=== PATIENT | female | born 1945 | race Caucasian/White ===

== ENCOUNTER 2017-12-19 09:12 | Observation (INO) | payer MEDICARE ==
[~2017-12-19] VITALS: Ht 160 cm; Wt 84.3 kg
[2017-12-19] VITALS (8 sets, daily range): BP systolic 123–141; BP diastolic 58–70; PULSE 68–96; RESP 16–20; TEMP 96.8–98; O2SAT 90–95
[~2017-12-19 09:12] MED LIST: ALBU8I INH; ASPI81TA82 PO; NAPR-576 PO; ULTR50TA PO; ZOCO40TA PO; ZYRT10TA12 PO
[2017-12-19] MEDS ORDERED: SODIUM CHLORIDE 0.9% FLUSH 10 ML FLUSH IVF PRN (09:45)
--- NOTE | 2017-12-19 09:50 | PD ---
HPI Chief Complaint: Abdominal Pain Time Seen by Provider: 09:30 Travel History International Travel<30 days: No Contact w/Intl Traveler<30days: No Traveled to known affect area: No History of Present Illness HPI The patient 72 and complains of a vague cramping discomfort along the costal margin bilaterally which occurred while she was at a stained glass class lasting just a few minutes. 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 No syncope or near -syncope lightheadedness dizziness nausea vomiting or diaphoresis accompanied the spell. The patient has been short of breath lately and has been fighting some benefit by the use of Zyrtec and her inhaler at night. The significant other notes dyspnea on exertion. There is no orthopnea. No history of diabetes hypertension or coronary artery disease. Patient does not smoke. PFSH Past Medical History Hx Anticoagulant Therapy: Yes (ASA 81MG DAILY) Cardiovascular Problems: Yes (CHOL, HTN) Cerebrovascular Accident: Yes (2008) ?: Not Past Surgical History Hysterectomy: Yes Other Surgery: Yes Social History Alcohol Use: Yes (rare) Tobacco Use: No Substance Use: No Allergies-Medications (Allergen,Severity, Reaction): Coded Allergies: latex (Unverified Allergy, Severe, RASH, 12/19/17) adhesive (Unverified Allergy, Intermediate, RASH, 12/19/17) Uncoded Allergies: TOPICAL ANTIBIOTICS (Allergy, Intermediate, RASH AND HIVES, 10/20/15) Reported Meds & Prescriptions Reported Meds & Active Scripts Active Reported Calcium 600 with Vitamin D (Calcium Carbonate-Cholecalciferol) 600-400 mg-Unit Tab 1,200 Tab PO DAILY Cetirizine (Cetirizine HCl) 10 Mg Chew 10 Mg CHEW DAILY Vitamin D3 (Cholecalciferol) 2,000 Unit Cap 2,000 Units PO DAILY Aspirin Low Dose (Aspirin) 81 Mg Chew 81 Mg CHEW DAILY Meloxicam 15 Mg Tab 15 Mg PO DAILY Simvastatin 20 Mg Tab 20 Mg PO DAILY Review of Systems Except as stated in HPI: all other systems reviewed are Neg General / Constitutional: No: Fever Physical Exam Narrative GENERAL: 9-year-old female pleasant well-nourished well-developed no acute distress Vital Signs Date Time Temp Pulse Resp B/P (MAP) Pulse Ox O2 Delivery O2 Flow Rate FiO2 12/19/17 09:39 20 12/19/17 09:20 98.0 96 16 141/68 (92) 92 SKIN: Warm and dry. HEAD: Atraumatic. Normocephalic. EYES: Pupils equal and round. No scleral icterus. No injection or drainage. ENT: No nasal bleeding or discharge. Mucous membranes pink and moist. NECK: Trachea midline. No JVD. CARDIOVASCULAR: Regular rate and rhythm. RESPIRATORY: No accessory muscle use. Clear to auscultation. Breath sounds equal bilaterally. GASTROINTESTINAL: Abdomen soft, non-tender, nondistended. Hepatic and splenic margins not palpable. MUSCULOSKELETAL: Extremities without clubbing, cyanosis, or edema. No obvious deformities. NEUROLOGICAL: Awake and alert. No obvious cranial nerve deficits. Motor grossly within normal limits. Five out of 5 muscle strength in the arms and legs. Normal speech. PSYCHIATRIC: Appropriate mood and affect; insight and judgment normal. Data Data Last Documented VS Vital Signs Date Time Temp Pulse Resp B/P (MAP) Pulse Ox O2 Delivery O2 Flow Rate FiO2 12/19/17 10:15 93 Nasal Cannula 2.00 12/19/17 09:39 20 12/19/17 09:20 98.0 96 141/68 (92) Orders Orders Electrocardiogram (12/19/17 09:35) B-Type Natriuretic Peptide (12/19/17 09:35) Ckmb (Isoenzyme) Profile (12/19/17 09:35) Complete Blood Count With Diff (12/19/17 09:35) Comprehensive Metabolic Panel (12/19/17 09:35) Magnesium (Mg) (12/19/17 09:35) Prothrombin Time / Inr (Pt) (12/19/17 09:35) Act Partial Throm Time (Ptt) (12/19/17 09:35) Troponin I (12/19/17 09:35) Lipase (12/19/17 09:35) Chest, Single Ap (12/19/17 09:35) Ecg Monitoring (12/19/17 09:35) Iv Access Insert/Monitor (12/19/17 09:35) Oximetry (12/19/17 09:35) Oxygen Administration (12/19/17 09:35) Sodium Chloride 0.9% Flush (Ns Flush) (12/19/17 09:45) CKMB (12/19/17 09:59) CKMB% (12/19/17 09:59) Place In Observation (12/19/17:25) Activity Bed Rest With Brp (12/19/17 11:25) Vital Signs (Adult) Q4H (12/19/17 11:25) Cardiac Rhythm .As Directed (12/19/17:) Notify Dr: Other .PRN (12/19/17) Notify Parameters (12/19/17:25) Resp Oxygen Nasal Cannula (12/19/17 ) Ckmb (Isoenzyme) Profile (12/19/17:25) Ckmb (Isoenzyme) Profile (12/19/17:25) Troponin I (12/19/17:25) Troponin I (12/19/17:25) Electrocardiogram (12/19/17:25) Electrocardiogram (12/19/17:25) ^ Obtain (12/19/17:25) Sodium Chloride 0.9% Flush (Ns Flush) (12/19/17 11:30) Sodium Chloride 0.9% Flush (Ns Flush) (12/19/17 21:00) Acetaminophen (Tylenol) (12/19/17 11:30) Ondansetron Inj (Zofran Inj) (12/19/17 11:30) Famotidine (Pepcid) (12/19/17 21:00) Aspirin (Aspirin) (12/20/17 09:00) Route Driver [employer] Machines / Telemetry KYLE.Q8H (12/19/17 11:25) Admit Order (Ed Use Only) (12/19/17 ) Route Driver [employer] Machines / Telemetry KYLE.Q8H (12/19/17 11:27) Vital Signs (Adult) Q4H (12/19/17 11:27) Activity Oob With Assistance (12/19/17 11:27) Labs Laboratory Tests Test 12/19/17 09:59 White Blood Count 3.8 TH/MM3 Red Blood Count 4.81 MIL/MM3 Hemoglobin 14.7 GM/DL Hematocrit 44.4 % Mean Corpuscular Volume 92.2 FL Mean Corpuscular Hemoglobin 30.6 PG Mean Corpuscular Hemoglobin Concent 33.1 % Red Cell Distribution Width 13.0 % Platelet Count 192 TH/MM3 Mean Platelet Volume 8.0 FL Neutrophils (%) (Auto) 53.3 % Lymphocytes (%) (Auto) 28.2 % Monocytes (%) (Auto) 9.2 % Eosinophils (%) (Auto) 8.1 % Basophils (%) (Auto) 1.2 % Neutrophils # (Auto) 2.1 TH/MM3 Lymphocytes # (Auto) 1.1 TH/MM3 Monocytes # (Auto) 0.3 TH/MM3 Eosinophils # (Auto) 0.3 TH/MM3 Basophils # (Auto) 0.0 TH/MM3 CBC Comment DIFF FINAL Differential Comment Prothrombin Time 10.0 SEC Prothromb Time International Ratio 1.0 RATIO Activated Partial Thromboplast Time 27.5 SEC Blood Urea Nitrogen 13 MG/DL Creatinine 0.73 MG/DL Random Glucose 86 MG/DL Total Protein 7.3 GM/DL Albumin 3.5 GM/DL Calcium Level 8.7 MG/DL Magnesium Level 2.1 MG/DL Alkaline Phosphatase 103 U/L Aspartate Amino Transf (AST/SGOT) 20 U/L Alanine Aminotransferase (ALT/SGPT) 15 U/L Total Bilirubin 0.6 MG/DL Sodium Level 134 MEQ/L Potassium Level 4.3 MEQ/L Chloride Level 102 MEQ/L Carbon Dioxide Level 26.2 MEQ/L Anion Gap 6 MEQ/L Estimat Glomerular Filtration Rate 79 ML/MIN Total Creatine Kinase 114 U/L Creatine Kinase MB 2.2 NG/ML Troponin I LESS THAN 0.02 NG/ML B-Type Natriuretic Peptide 18 PG/ML Lipase 98 U/L MDM Medical Decision Making Medical Screen Exam Complete: Yes Emergency Medical Condition: Yes Differential Diagnosis NSTEMI, unstable angina, coronary vasospasm, PE, PTX, aortic dissection, pericarditis, myocarditis, endocarditis, PNA, esophageal disease, aneurysm, musculoskeletal etiologies, anxiety, cocaine/sympathomimetic abuse Narrative Course EKG shows a sinus rhythm with no ischemic injury pattern The patient has a presentation which is somewhat concerning for anginal equivalent. When coupled with the shortness of breath on exertion there is concern for coronary artery disease in which case a chest pain center evaluation is considered most appropriate. The patient agrees to stay for it. The case was discussed with Dr. Jones. CBC & BMP Diagram 12/19/17 09:59 Total Protein 7.3, Albumin 3.5, Calcium Level 8.7, Magnesium Level 2.1, Alkaline Phosphatase 103, Aspartate Amino Transf (AST/SGOT) 20, Alanine Aminotransferase (ALT/SGPT) 15, Total Bilirubin 0.6 Troponin is negative Diagnosis Primary Impression: Anginal equivalent Additional Impression: Dyspnea on exertion Admitting Information Admitting Physician Requests: Observation Freddy Ewing MD Dec 19, 2017 09:50
--- NOTE | 2017-12-19 09:51 | RADRPT ---
EXAM DATE/TIME: 12/19/2017 09:38 [facility] COMPARISON: No previous studies available for comparison. EXTERNAL COMPARISON : INDICATIONS : Lower chest pain. MEDICAL HISTORY : Hypertension. Hypertension SURGICAL HISTORY : Hysterectomy. ENCOUNTER: Initial ACUITY: 1 day PAIN SCORE: 6/10 LOCATION: lower chest FINDINGS: Minimal linear parenchymal opacities at the lung bases. Cardiomediastinal contours are within normal limits. Bony thorax is intact. CONCLUSION: 1. Minimal bibasilar linear parenchymal opacities, presumably atelectasis/scarring. Ugo Vargas MD on December 19, 2017 at 9:49 Board Certified Radiologist. This report was verified electronically.
[2017-12-19 10:06] LABS: AUTOMATED NEUTROPHIL # 2.1 TH/MM3 (1.8-7.7); BASOPHIL % 1.2 % (0.0-2.0); EOSINOPHIL # 0.3 TH/MM3 (0-0.4); EOSINOPHIL % 8.1 % (0.0-4.0); HEMATOCRIT 44.4 % (35.0-46.0); HEMOGLOBIN 14.7 GM/DL (11.6-15.3); LYMPH % 28.2 % (9.0-44.0); LYMPHOCYTE # 1.1 TH/MM3 (1.0-4.8); MEAN CELL VOLUME 92.2 FL (80.0-100.0); MEAN CORPUSCULAR HEMOGLOBIN 30.6 PG (27.0-34.0); MEAN CORPUSCULAR HGB CONC 33.1 % (32.0-36.0); MONO % 9.2 % (0.0-8.0); MONOCYTE # 0.3 TH/MM3 (0-0.9); NEUT % 53.3 % (16.0-70.0); PLATELET COUNT 192 TH/MM3 (150-450); RED BLOOD COUNT 4.81 MIL/MM3 (4.00-5.30); WHITE BLOOD COUNT 3.8 TH/MM3 (4.0-11.0)
[2017-12-19 10:13] LABS: CHLORIDE 102 MEQ/L (98-107); SODIUM (NA) 134 MEQ/L (136-145)
[2017-12-19 10:16] LABS: ALBUMIN 3.5 GM/DL (3.4-5.0); BICARBONATE 26.2 MEQ/L (21.0-32.0); BLOOD UREA NITROGEN 13 MG/DL (7-18); CALCIUM 8.7 MG/DL (8.5-10.1); GLUCOSE,RANDOM 86 MG/DL (74-106); MAGNESIUM 2.1 MG/DL (1.5-2.5)
[2017-12-19 10:19] LABS: ALT (GPT) 15 U/L (10-53); AST (GOT) 20 U/L (15-37); CREATININE 0.73 MG/DL (0.50-1.00); GLOMERULAR FILTRATION RATE 79 ML/MIN (>89)
[2017-12-19 10:21] LABS: TOTAL PROTEIN 7.3 GM/DL (6.4-8.2)
[2017-12-19 10:22] LABS: ALKALINE PHOSPHATASE 103 U/L (45-117)
[2017-12-19] MEDS ORDERED: SIMV20TA PO (10:22)
[2017-12-19] MEDS ORDERED: VITA2000 PO (10:22)
[2017-12-19] MEDS ORDERED: ASPI81CH6 CHEW (10:22)
[2017-12-19] MEDS ORDERED: MELO15TA20 PO (10:22)
[2017-12-19] MEDS ORDERED: CALC1TAB87 PO (10:22)
[2017-12-19] MEDS ORDERED: CETI10CH CHEW (10:22)
[2017-12-19 10:24] LABS: TOTAL BILIRUBIN ADULT 0.6 MG/DL (0.2-1.0); TROPONIN I LESS THAN 0.02 NG/ML (0.02-0.05)
[2017-12-19] MEDS ORDERED: ACETAMINOPHEN 500 MG CPLT PO PRN (11:30)
[2017-12-19] MEDS ORDERED: ONDANSETRON HCL 4 MG/2 ML VIAL IV PUSH PRN (11:30)
[2017-12-19] MEDS ORDERED: SODIUM CHLORIDE 0.9% FLUSH 10 ML FLUSH IV FLUSH PRN (11:30)
[2017-12-19] MEDS ORDERED: IOHEXOL 350 MG/ML 10 ML VIAL (for RAD DIAG) IVCONTRAST ONE (11:33)
[2017-12-19 12:09] LABS: TROPONIN I LESS THAN 0.02 NG/ML (0.02-0.05)
--- NOTE | 2017-12-19 13:54 | HHI.HP ---
[facility] Service [facility] Primary Care Physician Non-Staff Admission Diagnosis Anginal Equivalent; Dyspnea on Exertion Diagnoses: Chief Complaint: Chest pain Travel History International Travel<30 Days: No Contact w/Intl Traveler <30 Da: No Traveled to Known Affected Are: No History of Present Illness This patient is a 72-year-old female with a history of hypertension and pulmonary embolism who has come to the emergent complaining of increased chest discomfort with some associated tachycardia for one day. This lasted about half an hour. It began radiating into the jaw. It occurred with minimal exertion. She has however had increased dyspnea on exertion for the last week. She notes that she's been taking allergy medicine and her hand held inhaler increasingly over the last week. She is visiting from [place]. Last year she has symptoms similar to this and improved with allergy medicine and her inhaler. She notes no lower extremity swelling. She's never had any chest pain like this. 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 His been no fevers or chills. She's had no sick contacts. The pain is described as crampy and is below the breasts bilaterally and she takes naproxen and aspirin. She has sciatica. She has not had any cardiac evaluations. Patient is wheezy on exam and minimally hypoxemic. At this time the patient and recommended for further evaluation of atypical chest discomfort with shortness of breath. Review of Systems Constitutional: DENIES: Diaphoretic episodes, Fatigue, Fever, Weight gain, Weight loss, Chills, Dizziness, Change in appetite, Night Sweats Endocrine: DENIES: Abnorml menstrual pattern, Heat/cold intolerance, Polydipsia , Polyuria, Polyphagia Eyes: DENIES: Blurred vision, Eye pain Ears, nose, mouth, throat: DENIES: Tinnitus, Hearing loss, Vertigo, Nasal discharge, Oral lesions, Throat pain, Hoarseness, Ear Pain, Running Nose, Epistaxis, Sinus Pain, Toothache, Odynophagia Respiratory: COMPLAINS OF: Cough, Wheezing, Sputum production, Shortness of breath, DENIES: Apneas, Snoring, Hemoptysis Cardiovascular: COMPLAINS OF: Chest pain, Dyspnea on Exertion, DENIES: Palpitations, Syncope, PND, Lower Extremity Edema, Orthopnea, Claudication Gastrointestinal: DENIES: Abdominal pain, Black stools, Bloody stools, Constipation, Diarrhea, Nausea, Vomiting, Difficulty Swallowing, Anorexia Genitourinary: DENIES: Abnormal vaginal bleeding, Dysmenorrhea, Dyspareunia, Sexual dysfunction, Urinary frequency, Urinary incontinence, Urgency, Hematuria , Dysuria, Nocturia, Vaginal discharge Musculoskeletal: DENIES: Joint pain, Muscle aches, Stiffness, Joint Swelling, Back pain, Neck pain Integumentary: DENIES: Abnormal pigmentation, Pruritus, Rash, Nail changes, Breast masses, Breast skin changes, Nipple discharge Hematologic/lymphatic: DENIES: Bruising, Lymphadenopathy Immunologic/allergic: DENIES: Eczema, Urticaria Neurologic: DENIES: Abnormal gait, Headache, Localized weakness, Paresthesias, Seizures, Speech Problems, Tremor, Poor Balance Psychiatric: DENIES: Anxiety, Confusion, Mood changes, Depression, Hallucinations, Agitation, Suicidal Ideation, Homicidal Ideation, Delusions Except as stated in HPI: all other systems reviewed are Neg Past Family Social History Past Medical History Hypertension Hyperlipidemia Pulmonary embolism Subarachnoid hemorrhage Past Surgical History Hysterectomy Clipping of a subarachnoid aneurysm Reported Medications Reviewed in the EMR Allergies: Coded Allergies: latex (Unverified Allergy, Severe, RASH, 12/19/17) adhesive (Unverified Allergy, Intermediate, RASH, 12/19/17) Uncoded Allergies: TOPICAL ANTIBIOTICS (Allergy, Intermediate, RASH AND HIVES, 10/20/15) Active Ordered Medications Reviewed in the EMR Family History Mother in her 80s of a heart failure, father in his 80s from bone cancer, sisters 2 are alive and well Social History Remote tobacco over 40 years ago, occasional alcohol, visiting from [place] Physical Exam Vital Signs Vital Signs Date Time Temp Pulse Resp B/P (MAP) Pulse Ox O2 Delivery O2 Flow Rate FiO2 12/19/17 12:36 12/19/17 12:24 91 18 132/70 (90) 94 Nasal Cannula 2.00 12/19/17 10:15 93 Nasal Cannula 2.00 12/19/17 10:06 93 Nasal Cannula 2.00 12/19/17 10:06 91 Room Air 12/19/17 09:39 20 12/19/17 09:20 98.0 96 16 141/68 (60) 92 Physical Exam GENERAL: This is a well-nourished, well-developed patient, in no apparent distress. SKIN: No rashes, ecchymoses or lesions. Cool and dry. HEAD: Atraumatic. Normocephalic. No temporal or scalp tenderness. EYES: Pupils equal round and reactive. Extraocular motions intact. No scleral icterus. No injection or drainage. ENT: Nose without bleeding, purulent drainage or septal hematoma. Throat without erythema, tonsillar hypertrophy or exudate. Uvula midline. Airway patent. NECK: Trachea midline. No JVD or lymphadenopathy. Supple, nontender, no meningeal signs. CARDIOVASCULAR: Regular rate and rhythm without murmurs, gallops, or rubs. RESPIRATORY: Wheezes worse on the left than the right, good airflow GASTROINTESTINAL: Abdomen soft, non-tender, nondistended. No hepato-splenomegaly , or palpable masses. No guarding. MUSCULOSKELETAL: Extremities without clubbing, cyanosis, or edema. No joint tenderness, effusion, or edema noted. No calf tenderness. Negative Homans sign bilaterally. NEUROLOGICAL: Awake and alert. Cranial nerves II through XII intact. Motor and sensory grossly within normal limits. Five out of 5 muscle strength in all muscle groups. Normal speech. Laboratory Laboratory Tests Test 12/19/17 09:59 12/19/17 11:45 White Blood Count 3.8 Red Blood Count 4.81 Hemoglobin 14.7 Hematocrit 44.4 Mean Corpuscular Volume 92.2 Mean Corpuscular Hemoglobin 30.6 Mean Corpuscular Hemoglobin Concent 33.1 Red Cell Distribution Width 13.0 Platelet Count 192 Mean Platelet Volume 8.0 Neutrophils (%) (Auto) 53.3 Lymphocytes (%) (Auto) 28.2 Monocytes (%) (Auto) 9.2 Eosinophils (%) (Auto) 8.1 Basophils (%) (Auto) 1.2 Neutrophils # (Auto) 2.1 Lymphocytes # (Auto) 1.1 Monocytes # (Auto) 0.3 Eosinophils # (Auto) 0.3 Basophils # (Auto) 0.0 CBC Comment DIFF FINAL Differential Comment Prothrombin Time 10.0 Prothromb Time International Ratio 1.0 Activated Partial Thromboplast Time 27.5 Blood Urea Nitrogen 13 Creatinine 0.73 Random Glucose 86 Total Protein 7.3 Albumin 3.5 Calcium Level 8.7 Magnesium Level 2.1 Alkaline Phosphatase 103 Aspartate Amino Transf (AST/SGOT) 20 Alanine Aminotransferase (ALT/SGPT) 15 Total Bilirubin 0.6 Sodium Level 134 Potassium Level 4.3 Chloride Level 102 Carbon Dioxide Level 26.2 Anion Gap 6 Estimat Glomerular Filtration Rate 79 Total Creatine Kinase 114 239 Creatine Kinase MB 2.2 Troponin I LESS THAN 0.02 LESS THAN 0.02 B-Type Natriuretic Peptide 18 Lipase 98 Result Diagram: 12/19/1759 12/19/17 0959 Imaging Last Impressions Chest X-Ray 12/19/17934 Signed Impressions: Service Date/Time: Tuesday, December 19, 2017 09:38 - CONCLUSION: 1. Minimal bibasilar linear parenchymal opacities, presumably atelectasis/scarring. Ugo Vargas MD Septic Shock Reassessment Septic shock perfusion: reassessment completed Caprini VTE Risk Assessment Caprini VTE Risk Assessment: No/Low Risk (score <= 1) Caprini Risk Assessment Model Point Value = 1 Point Value = 2 Point Value = 3 Point Value = 5 Age 41-60 Minor surgery BMI > 25 kg/m2 Swollen legs Varicose veins or History of unexplained or recurrent spontaneous Oral contraceptives or hormone replacement Sepsis (< 1 month) Serious lung disease, including pneumonia (< 1 month) Abnormal pulmonary function Acute myocardial infarction Congestive heart failure (< 1 month) History of inflammatory bowel disease Medical patient at bed rest Age 61-74 Arthroscopic surgery Major open surgery (> 45 min) Laparoscopic surgery (> 45 min) Malignancy Confined to bed (> 72 hours) Immobilizing plaster cast Central venous access Age >= 75 History of VTE Family history of VTE Factor V Leiden Prothrombin [id number] Lupus anticoagulant Anticardiolipin antibodies Elevated serum homocysteine Heparin-induced thrombocytopenia Other congenital or acquired thrombophilia Stroke (< 1 month) Elective arthroplasty Hip, pelvis, or leg fracture Acute spinal cord injury (< 1 month) Prophylaxis Regimen Total Risk Factor Score Risk Level Prophylaxis Regimen 0-1 Low Early ambulation 2 Moderate Order ONE of the following: *Sequential Compression Device (SCD) *Heparin 5000 units SQ BID 3-4 Higher Order ONE of the following medications: *Heparin 5000 units SQ TID *Enoxaparin/Lovenox 40 mg SQ daily (WT < 150 kg, CrCl > 30 mL/min) *Enoxaparin/Lovenox 30 mg SQ daily (WT < 150 kg, CrCl > 10-29 mL/min) *Enoxaparin/Lovenox 30 mg SQ BID (WT < 150 kg, CrCl > 30 mL/min) AND/OR *Sequential Compression Device (SCD) 5 or more Highest Order ONE of the following medications: *Heparin 5000 units SQ TID (Preferred with Epidurals) *Enoxaparin/Lovenox 40 mg SQ daily (WT < 150 kg, CrCl > 30 mL/min) *Enoxaparin/Lovenox 30 mg SQ daily (WT < 150 kg, CrCl > 10-29 mL/min) *Enoxaparin/Lovenox 30 mg SQ BID (WT < 150 kg, CrCl > 30 mL/min) AND *Sequential Compression Device (SCD) Assessment and Plan Problem List: (1) Anginal equivalent ICD Code: I20.8 - Other forms of angina pectoris Status: Acute Plan: Patient certainly with risk factors including age, post menopausal state and hypertension She continued to take aspirin Follow-up on telemetry Cardiac enzymes Repeat CPK is somewhat elevated and we will follow her trend Her family history is remarkable for congestive heart failure but no premature cardiac disease Stress test in a.m. (2) Dyspnea on exertion ICD Code: R06.09 - Other forms of dyspnea Status: Acute Plan: may be related to undiagnosed COPD, workup in progress Continue with steroids, bronchodilators Chest x-ray unremarkable Follow-up d-dimer Alyce Jones MD Dec 19, 2017 13:54
[2017-12-19] MEDS ORDERED: RESP: ALBUTEROL 2.5 MG/IPRATROPIUM 0.5 MG NEB (PRN) NEB (14:00)
[2017-12-19] MEDS: RESP: ALBUTEROL 2.5 MG/IPRATROPIUM 0.5 MG NEB (SCH) NEB ×2 (14:50→20:25)
[2017-12-19 15:58] LABS: TROPONIN I LESS THAN 0.02 NG/ML (0.02-0.05)
--- NOTE | 2017-12-19 18:55 | RADRPT ---
EXAM DATE/TIME: 12/19/2017 18:27 [facility] COMPARISON: No previous studies available for comparison. INDICATIONS : Chest discomfort and tachycardia. Dyspnea with exertion. IV CONTRAST: 75 cc Omnipaque 350 (iohexol) IV RADIATION DOSE: 11.98 CTDIvol (mGy) MEDICAL HISTORY : Hypertension. Pulmonary embolism. SURGICAL HISTORY : Hysterectomy. ENCOUNTER: Initial ACUITY: 1 day PAIN SCALE: 4/10 LOCATION: chest TECHNIQUE: Volumetric scanning of the chest was performed using a pulmonary embolism protocol MIP images were re constructed. Using automated exposure control and adjustment of the mA and/or kV according to patien t size, radiation dose was kept as low as reasonably achievable to obtain optimal diagnostic quality images. DICOM format image data is available electronically for review and comparison. Follow-up recommendations for detected pulmonary nodules are based at a minimum on nodule size and pa tient risk factors according to Fleischner Society Guidelines. FINDINGS: No filling defects to suggest pulmonary embolic disease. Mild emphysema. No consolidation. No significant effusion. Moderate coronary calcifications. No acute findings in the upper abdomen. CONCLUSION: 1. Negative for pulmonary embolus. Mild apical emphysema. No effusion. Antony Kee MD on December 19, 2017 at 18:53 Board Certified Radiologist. This report was verified electronically.
[2017-12-19] MEDS ORDERED: MELATONIN 5 MG TAB PO ONE (21:00)
[2017-12-19] MEDS: SODIUM CHLORIDE 0.9% FLUSH 10 ML FLUSH IV FLUSH SCH (21:00)
[2017-12-19] MEDS: FAMOTIDINE 20 MG TAB PO SCH (22:18)
[2017-12-19] MEDS: predniSONE 20 MG TAB PO SCH (22:18)
--- NOTE | 2017-12-19 22:26 | EKG ---
Date Performed: 12/19/2017 Time Performed: 11:33:53 PTAGE: 72 years EKG: Sinus rhythm POSSIBLE LEFT ATRIAL ENLARGEMENT BORDERLINE ECG PREVIOUS TRACING : 12/19/2017 09.49 Since the prior tracing, there has been no significant bustos DOCTOR: Cesar Chaney Interpretating Date/Time 12/19/2017 22:25:48
--- NOTE | 2017-12-19 23:21 | EKG ---
Date Performed: 12/19/2017 Time Performed: 09:49:41 PTAGE: 72 years EKG: Sinus rhythm POSSIBLE LEFT ATRIAL ENLARGEMENT BORDERLINE ECG PREVIOUS TRACING : 01/08/2016 07.27 Since the prior tracing, there has been no significant bustos DOCTOR: Cesar Chaney Interpretating Date/Time 12/19/2017 23:19:43
[2017-12-20] VITALS (9 sets, daily range): BP systolic 102–122; BP diastolic 68–80; PULSE 96–106; RESP 18–22; TEMP 96.8–97.4; O2SAT 92–96
[2017-12-20] MEDS: RESP: ALBUTEROL 2.5 MG/IPRATROPIUM 0.5 MG NEB (SCH) NEB ×3 (08:03→19:44)
[2017-12-20] MEDS: FAMOTIDINE 20 MG TAB PO SCH ×2 (08:03→20:07)
[2017-12-20] MEDS: predniSONE 20 MG TAB PO SCH ×2 (08:03→20:07)
[2017-12-20] MEDS: SODIUM CHLORIDE 0.9% FLUSH 10 ML FLUSH IV FLUSH SCH ×2 (08:04→20:07)
[2017-12-20] MEDS ORDERED: ASPIRIN 325 MG TAB PO SCH (09:00)
--- NOTE | 2017-12-20 09:40 | HHI.PR ---
Subjective Remarks Patient seen and examined today for follow-up on chest pain, shortness of breath. Patient states that she is doing much better. She is eagerly waiting for her stress test and pulmonary evaluation so she can go home. She is asking for some nasal spray because of postnasal drip. She is also asking for refill of her inhaler upon discharge. The patient is significantly improved. She wants to go home today. Objective Vitals Vital Signs Date Time Temp Pulse Resp B/P (MAP) Pulse Ox O2 Delivery O2 Flow Rate FiO2 12/20/17 08:00 97.1 102 22 94 12/20/17 07:57 92 Nasal Cannula 2.00 12/20/17 05:17 115/80 (92) 12/20/17 01:33 97.4 96 18 102/68 (79) 96 12/19/17 23:00 68 12/19/17 21:38 98.0 93 20 137/65 (89) 95 12/19/17 20:25 95 Nasal Cannula 2.00 12/19/17 16:00 96.8 95 20 123/58 (79) 90 12/19/17 12:36 12/19/17 12:24 91 18 132/70 (90) 94 Nasal Cannula 2.00 12/19/17 10:15 93 Nasal Cannula 2.00 12/19/17 10:06 93 Nasal Cannula 2.00 12/19/17 10:06 91 Room Air I/O 12/19/17 12/19/17 12/19/17 12/20/17 12/20/17 12/20/17 07:00 15:00 23:00 07:00 15:00 23:00 Intake Total 250 ml 240 ml Balance 250 ml 240 ml Intake Oral 250 ml 240 ml # Voids 1 3 Result Diagram: 12/19/17 0959 12/19/17 0959 Objective Remarks GENERAL: Well-developed, well-nourished, in no acute distress. alert and orientated HEENT: Head is normocephalic without any lesions or masses noted. Facial features are symmetric. Eyes: Extraocular muscles are intact. Conjunctivae were clear. NECK: Supple without any masses. Trachea midline no deviation. No JVD, CARDIAC: Regular rhythm, regular rate. S1/S2 are heard. No murmurs gallops or rubs. LUNGS: Clear to auscultation bilaterally. No wheeze, rhonchi or rales. No use of accessory muscles on inspiration or expiration. ABDOMEN: Soft, nontender. Nondistended. Bowel sounds heard in all 4 quadrants. No organomegaly or masses. Negative rebound, negative guarding EXTREMITIES: No edema, pulses are equal bilaterally. No cyanosis or clubbing NEUROLOGY: Mood and affect appear appropriate. Cranial nerves II through XII grossly intact. Moving all extremities, speech is clear Urinary Catheter: No Vascular Central Line Catheter: No A/P Assessment and Plan Angina equivalent with presenting symptoms of shortness of breath, chest cramping, pain in jaw Patient does have increased risk factors to include age, menopausal state, hypertension history of tobacco use patient had been ruled out for acute coronary event with serial cardiac enzymes that have remained negative Serial EKGs were performed which did show normal EKG with sinus rhythm without any changes Myocardial perfusion study was performed which did not indicate any underlying ischemia, low risk Echocardiogram is pending Patient was continued on aspirin Shortness of breath, dyspnea on exertion, improved Could be a component of undiagnosed chronic obstructive pulmonary disease Continue O2 supplementation maintain O2 sats greater than 92% Continue prednisone Continue duo nebs Identity Management Consultant consulted for recommendations, Pulmonary function study was performed Oxygen home walk study was performed which does show 88% O2 saturations on room air during exertion, 91% on 2 L per nasal cannula on exertion Case management consult for home oxygen Discuss with counter weigher who indicated patient may be discharged home with Symbicort, oxygen, albuterol with outpatient follow-up Hypertension, hyperlipidemia Home medications have been continued DVT prevention Sequential compression devices Discharge Planning Discharge home in stable condition Activity: Ad arnel. Diet: Healthy heart diet Medications per medication reconciliation Follow-up with primary medical doctor in one week Duane Chavarria Dec 20, 2017 09:40
[2017-12-20] MEDS: FLUTICASONE PROPIONATE 50 MCG/ACT 16 GM NASAL SPRAY NASAL SCH ×2 (10:54→20:11)
[2017-12-20] MEDS ORDERED: AMINOPHYLLINE INJ 250 MG/10 ML VIAL IV ONE (12:12)
[2017-12-20] MEDS ORDERED: REGADENOSON INJ 0.4 MG/5 ML SYR IV ONE (12:12)
[2017-12-20] MEDS ORDERED: PRED20 PO (12:19)
[2017-12-20] MEDS ORDERED: VENTAER INH (12:19)
[2017-12-20] MEDS ORDERED: ALBU0.08 NEB (12:19)
[2017-12-20] MEDS ORDERED: OXYGENTANK NAS.CANULA (12:19)
--- NOTE | 2017-12-20 13:01 | RADRPT ---
EXAM DATE/TIME: 12/20/2017 11:31 [facility] COMPARISON: No previous studies available for comparison. INDICATIONS : Substernal chest pain radiating to jaw with dyspnea. Angina. Abnormal EKG. DOSE: 25.4 mCi Tc99m Myoview at stress. 8.5 mCi Tc99m Myoview at rest. 0.4 mg Lexiscan STRESS SYMPTOMS: Dyspnea, headache, nausea, chest pressure and extremity numbness. MEDICATIONS: 1.) 100 mg Aminophylline IV EJECTION FRACTION: 67% MEDICAL HISTORY : Hypertension. Pulmonary embolism. SURGICAL HISTORY : Hysterectomy. Clipping of a subarachnoid aneurysm. ENCOUNTER: Initial ACUITY: 1 day PAIN SCALE: 7/10 LOCATION: Substernal chest TECHNIQUE: The patient underwent pharmacologic stress with infusion of prescribed dose. Continuous ECG tracing was monitored during stress. Gated SPECT imaging was performed after stress and conventional SPECT i maging was performed at rest. The examination was performed on a SPECT/CT scanner, both attenuation and non-corrected datasets were reviewed. FINDINGS: DISTRIBUTION: The maximum perfused segment at stress is in the inferior wall. PERFUSION STUDY: The pattern of perfusion at stress is within normal limits. GATED STUDY: There is intact wall motion and thickening without hypokinetic or dyskinetic segments. CONCLUSION: Unremarkable myocardial perfusion examination RISK CATEGORY: low Richar Cox MD on December 20, 2017 at 12:59 Board Certified Radiologist. This report was verified electronically.
[2017-12-20] MEDS ORDERED: NEBULIZER1 MI1 (13:15)
--- NOTE | 2017-12-20 14:26 | TR ---
Date Performed: 12/20/2017 Time Performed: 11:56:29 DOCTOR: Adarsh Rivers DRUG LIST: CLINICAL HISTORY: CHEST PAIN REASON FOR TEST: Chest pain REASON FOR ENDING: OBSERVATION: CONCLUSION: Lexiscan stress test was performed under standard four minute protocol. Radionuclid e was injected one minute prior to ending the test. No electrocardiographic abormalities were present to suggest ischemia. Nuclear imaging and interpretation are pending. COMMENTS:
--- NOTE | 2017-12-20 14:27 | EKG ---
Date Performed: 12/19/2017 Time Performed: 15:17:33 PTAGE: 72 years EKG: Sinus rhythm NORMAL ECG Since PREVIOUS TRACING , no significant change noted PREVIOUS TRACIN12/19/2017 11.33 DOCTOR: Andre High Interpretating Date/Time 12/20/2017 14:26:28
[2017-12-20] MEDS ORDERED: SYMB160A INH (14:34)
--- NOTE | 2017-12-20 14:36 | HHI.DCPOC ---
Discharge Care Plan Diagnosis: (1) Anginal equivalent (2) Hypoxia (3) Dyspnea on exertion Goals to Promote Your Health * To prevent worsening of your condition and complications * To maintain your health at the optimal level Directions to Meet Your Goals Take your medications as prescribed Follow your dietary instruction Follow activity as directed Keep your appointments as scheduled Take your immunizations and boosters as scheduled If your symptoms worsen call your PCP, if no PCP go to Urgent Care Center or Emergency Room Smoking is Dangerous to Your Health. Avoid second hand smoke Call the 24-hour hour crisis hotline for domestic abuse at Duane Chavarria Dec 20, 2017 14:36
--- NOTE | 2017-12-20 16:52 | MB ---
cc: Laurel LIZAMA DATE OF CONSULTATION 12/20/17 HISTORY OF PRESENT ILLNESS Ms. Benitez is a 72-year-old white female who presented with inframammary chest pain, a persistent cough and shortness of breath now for a few weeks, but it intensified the day of admission and she was concerned about a coronary syndrome. She is a retired nurse. On presentation, she was stable but complaining of pain. A CPK was elevated, so they worked her up for possible anginal equivalent. She had a nuclear medicine stress test today that was normal, so is not felt to be coronary. She has done well in the hospital with aerosol treatments and her pain has resolved. She is also on prednisone orally. She has had no purulent sputum. No fever. She was a former smoker of one to 1 1/2 packs per day for about 15-20 years, quit smoking in her late 30s. No other secondhand smoke exposure. There is a strong family history of obstructive lung disease though. Her mother had COPD or emphysema, was apparently a smoker. She has a son who had asthma as a child with allergies and a sister with asthma. She has never been formally diagnosed with asthma, but she says every time she comes to [place] at this time of year the pollens flare. In her chest, she gets congested with some intermittent wheezing and does use a ProAir inhaler. She had a spirometry yesterday with an FEV-1 of only 25%, FVC of 35. She did a walk test today and her O2 sats dropped to 88% on room air, but she is 96% on two liters. O2 is being arranged for discharge. PAST MEDICAL HISTORY 1. Hypertension, 2. Pulmonary embolism in 2008 after surgery for a subarachnoid hemorrhage. She took anticoagulants for several months. She has never had a recurrence. A CTA on admission here was negative for embolism. 3. Hysterectomy 4. 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 ALLERGIES LATEX ADHESIVE TOPICAL ANTIBIOTICS SOCIAL HISTORY She is living with her of 50 years. She is originally from [place], currently lives in [place]. She is a retired RN. She no longer smokes. Just occasional alcohol certainly not to excess. FAMILY HISTORY Mom had heart disease as well as COPD. Father of some type of metastatic malignancy and a sister with asthma. REVIEW OF SYSTEMS Chest pain has resolved completely. It sounds like it may have been musculoskeletal. The cough is much better. No purulent sputum or hemoptysis. No headache. No reflux disease or abdominal complaints. No chronic edema. PHYSICAL EXAMINATION VITAL SIGNS: 97 degrees, pulse 90, respirations 18, nonlabored, comfortable at rest, 120/78. HEENT: Sclerae anicteric. Mucous membranes are moist. Pharynx is clear. NECK: Neck veins are flat. No adenopathy in the neck or supraclavicular region. CHEST: Chest is actually quite clear, a bit diminished but no wheezes or rales. HEART: Regular rhythm. No harsh murmur. ABDOMEN: Soft. EXTREMITIES: No peripheral edema or calf tenderness. No cyanosis or clubbing. LABORATORY DATA CBC - white count is 3800, hemoglobin 14, eosinophils are high 8.1 consistent with her history of allergies. Electrolytes are fine. Follow up CKs are normal. DISCUSSION Ms. Benitez presents with what looks like obstructive lung disease. She has mild emphysema noted on the CTA and a history consistent with asthma and allergies. She is stable at present. Oxygen has been arranged for discharge and I would suggest she go home on Symbicort 160, one puffs twice a day, with a tapering course of prednisone, her albuterol as rescue and I will see her back in a week as an outpatient. Further diagnostic and/or therapeutic intervention will depend on some follow-up studies as an outpatient. She knows that if she is worse, she should come back to the emergency room if it happens before we see her in followup. R. MD OUMOU Darling/ /2:35 PM /4:38 PM
--- NOTE | 2017-12-20 17:43 | ECHRPT ---
Indication: Shortness of breath CONCLUSIONS Normal left ventricular size and wall thickness. The left ventricular systolic function is normal wi th an estimated ejection fraction in the range of 60-65%. Left ventricular diastolic function parameters a re normal. There is trace tricuspid valve regurgitation. The estimated pulmonary arterial pressure is 19.1 mmHg. technically limited study BP: / HR: Rhythm: Sinus MEASUREMENTS (Male / Female) Normal Values Technical Quality:Technically difficult study 2D ECHO LV Diastolic Diameter PLAX 3.6 cm 4.2 - 5.9 / 3.9 - 5.3 cm LV Systolic Diameter PLAX 2.5 cm IVS Diastolic Thickness 0.9 cm 0.6 - 1.0 / 0.6 - 0.9 cm LVPW Diastolic Thickness 0.9 cm 0.6 - 1.0 / 0.6 - 0.9 cm LV Relative Wall Thickness 0.5 LVOT Diameter 2.1 cm DOPPLER AV Peak Velocity 143.0 cm/s AV Peak Gradient 8.2 mmHg LVOT Peak Velocity 127.0 cm/s LVOT Peak Gradient 6.5 mmHg AV Area Cont Eq pk 3.1 cm Mitral E Point Velocity 59.2 cm/s Mitral A Point Velocity 92.3 cm/s Mitral E to A Ratio 0.6 TR Peak Velocity 151.0 cm/s TR Peak Gradient 9.1 mmHg Right Atrial Pressure 10.0 mmHg Pulmonary Artery Systolic Pressu 19.1 mmHg Right Ventricular Systolic Press 19.1 mmHg FINDINGS LEFT VENTRICLE Normal left ventricular size and wall thickness. The left ventricular systolic function is normal wi th an estimated ejection fraction in the range of 60-65%. Left ventricular diastolic function parameters a re normal. RIGHT VENTRICLE Normal right ventricular size and systolic function. LEFT ATRIUM The left atrial size is normal. RIGHT ATRIUM The right atrial size is normal. ATRIAL SEPTUM Normal atrial septal thickness without atrial level shunting by limited color doppler interrogation. AORTA The aortic root and proximal ascending aorta are normal in size on limited imaging. MITRAL VALVE Structurally normal mitral valve. No mitral valve stenosis or regurgitation. AORTIC VALVE Trileaflet aortic valve. No aortic valve stenosis or regurgitation. TRICUSPID VALVE There is trace tricuspid valve regurgitation. The estimated pulmonary arterial pressure is 19.1 mmHg. PULMONARY VALVE No pulmonary valve regurgitation or stenosis. VESSELS The inferior vena cava is normal in size. PERICARDIUM No pericardial effusion. Andre High MD, FACC, [facility] [place] (Electronically Signed) Final Date:20 December 2017 17:42
[2017-12-21] MEDS ORDERED: PRAVASTATIN SOD 40 MG TAB PO SCH (09:00)
== END 2017-12-20 21:15 | disposition home or self-care (01) ==
LOC: PHED 09:12 → PHEDA 11:32 → PH3A 12:33
PROVIDERS: ADMIT Hospitalist; ATTEND Hospitalist
DX: I20.8 Other forms of angina pectoris (principal); R06.09 Other forms of dyspnea; R09.82 Postnasal drip; R94.31 Abnormal electrocardiogram [ECG] [EKG]; R20.0 Anesthesia of skin; R51 Headache; R11.0 Nausea; R06.02 Shortness of breath; R09.02 Hypoxemia; R06.2 Wheezing; R05 Cough; I10 Essential (primary) hypertension; J43.9 Emphysema, unspecified; M54.30 Sciatica, unspecified side; Z87.891 Personal history of nicotine dependence; Z78.0 Asymptomatic menopausal state; Z82.49 Family history of ischemic heart disease and other diseases of the circulatory system; Z79.82 Long term (current) use of aspirin; Z86.73 Personal history of transient ischemic attack (TIA), and cerebral infarction without residual deficits; Z79.899 Other long term (current) drug therapy; Z86.711 Personal history of pulmonary embolism
CPT/HCPCS: 71045; 71275; 78452; 80053; 82550; 82552; 83690; 83735; 83880; 84484; 85025; 85379; 85610; 85730; 93005; 93017; 93306; 94010; 94150; 94618; 94640; 94664; 99285; A9502; G0378; J0280; J2785; J7512; Q9967

== ENCOUNTER → 2018-01-14 | Outpatient (CLI) | payer MEDICARE ==
[~2018-01-14] MED LIST changes: +ALBU0.08 NEB; -ALBU8I INH; +ASPI81CH6 CHEW; -ASPI81TA82 PO; +CALC1TAB87 PO; +CETI10CH CHEW; +MELO15TA20 PO; -NAPR-576 PO; +NEBULIZER1 MI1; +OXYGENTANK NAS.CANULA; +PRED20 PO; +SIMV20TA PO; +SYMB160A INH; -ULTR50TA PO; +VENTAER INH; +VITA2000 PO; -ZOCO40TA PO; -ZYRT10TA12 PO
--- NOTE | 2018-01-20 09:01 | RSPPFT ---
DATE OF PROCEDURE: 01/14/18 COMMENTS: VOLUMES DYNAMIC: FVC mildly reduced; FEV1 moderately reduced. STATIC: RV moderately increased; FRC mildly increased; TLC normal. FLOWS: FEV1% moderately reduced; FEF 25-75 severely reduced. DIFFUSION: Low normal. FLOW VOLUME LOOP: Pattern of variable intrathoracic airways obstruction. IMPRESSION: Moderately severe obstructive ventilatory defect with mild to moderate hyperinflation and some improvement post-bronchodilator.
== END ==
LOC: PHRSP 08:23
PROVIDERS: ATTEND Internal Medicine
DX: J44.9 Chronic obstructive pulmonary disease, unspecified (principal)
CPT/HCPCS: 94060; 94618; 94726; 94729